=== PATIENT | female | born 1950 | race Caucasian/White ===

== ENCOUNTER 2021-12-13 20:33 | Emergency (ER) | payer MEDICARE, OTHER ==
[2021-12-13 21:31] LABS: BASOPHIL 0.2 % (0-2); EOSINOPHIL 0.3 % (0-7); HCT 38.1 % (37.0-47.0); HGB 13.3 g/dl (12.5-16.0); MCH 28.7 pg (25.0-31.0); MCHC 34.9 g/dL (32.0-36.0); MCV 82.3 fL (78.0-100.0); MONOCYTE 10.7 % (0-12); MPV 8.9 fL (6.0-9.5); NEUTROPHIL 77.5 % (41-80); NRBC 0; PLT 239 K/uL (150-400); RBC 4.63 M/uL (4.20-5.40); RDW 11.9 % (11.5-14.0)
[2021-12-13 21:51] LABS: BILIRUBIN - TOTAL 0.7 mg/dL (0.2-1.0); BUN/CREAT RATIO (CALC) 17.7 RATIO; CREATININE 0.62 mg/dL (0.51-0.95); GLOBULIN (CALCULATION) 3.3 g/dL; POTASSIUM 3.6 mmol/L (3.5-5.1); TOTAL PROTEIN 7.3 g/dL (6.4-8.2)
[2021-12-13] MEDS ORDERED: ONDANSETRON ODT4 MG PO (22:10)
== END 2021-12-13 22:40 | disposition home or self-care (01) ==
LOC: FER 20:33
PROVIDERS: Emergency Medicine
DX: K52.9 Noninfective gastroenteritis and colitis, unspecified (principal); I10 Essential (primary) hypertension; Z79.899 Other long term (current) drug therapy; Z88.0 Allergy status to penicillin; Z88.2 Allergy status to sulfonamides; Z88.5 Allergy status to narcotic agent
CPT/HCPCS: 36415; 80053; 83690; 85025; J2405; J7030; Q0169